=== PATIENT | female | born 1935 | race Two or more races ===

== ENCOUNTER 2021-06-07 12:18 | Inpatient (IN) | payer OTHER ==
[~2021-06-07] VITALS: Ht 157.5 cm; Wt 54.4 kg
[2021-06-07] MEDS ORDERED: CHILDREN'S ASPI81 MG (12:27)
[2021-06-07] MEDS ORDERED: CLONAZEPAM0.5 MG (12:28)
[2021-06-07] MEDS ORDERED: VASOTEC5 MG (12:28)
[2021-06-07] MEDS ORDERED: ARICEPT5 MG (12:28)
[2021-06-07] MEDS ORDERED: NAMENDA10 MG (12:28)
[2021-06-07] MEDS ORDERED: METFORMIN HCL500 M3 (12:29)
[2021-06-07] MEDS ORDERED: RISPERDAL0.5 MG (12:31)
[2021-06-07] MEDS ORDERED: ATORVASTATIN CA40 MG (12:32)
[2021-06-07] MEDS ORDERED: SERTRALINE20 MG/1 ML (12:32)
[2021-06-07] MEDS ORDERED: LEVOTHYROXINE50 MC1 (12:32)
[2021-06-07] MEDS ORDERED: VITAMIN D310 MCG/1 M (12:32)
== END 2021-06-19 13:34 | DRG 689 ==
LOC: ER 12:18 → MEDI 16:37
PROVIDERS: ADMIT Internal Medicine; ATTEND Internal Medicine
PROC: 30243N1 Transfusion of Nonautologous Red Blood Cells into Central Vein, Percutaneous Approach (ICD-10-PCS; 2021-06-11)
PROC: 02HV33Z Insertion of Infusion Device into Superior Vena Cava, Percutaneous Approach (ICD-10-PCS; principal; 2021-06-13)
DX: N39.0 Urinary tract infection, site not specified (principal); E11.00 Type 2 diabetes mellitus with hyperosmolarity without nonketotic hyperglycemic-hyperosmolar coma (NKHHC); E87.0 Hyperosmolality and hypernatremia; K80.00 Calculus of gallbladder with acute cholecystitis without obstruction; N17.8 Other acute kidney failure; Z16.12 Extended spectrum beta lactamase (ESBL) resistance; R78.81 Bacteremia; D64.9 Anemia, unspecified; E11.65 Type 2 diabetes mellitus with hyperglycemia; Z79.4 Long term (current) use of insulin; I10 Essential (primary) hypertension; E03.8 Other specified hypothyroidism; E86.0 Dehydration; G30.9 Alzheimer's disease, unspecified; F02.80 Dementia in other diseases classified elsewhere, unspecified severity, without behavioral disturbance, psychotic disturbance, mood disturbance, and anxiety; R41.82 Altered mental status, unspecified; B96.29 Other Escherichia coli [E. coli] as the cause of diseases classified elsewhere; I80.8 Phlebitis and thrombophlebitis of other sites; Z20.822 Contact with and (suspected) exposure to COVID-19; D72.828 Other elevated white blood cell count; Z74.01 Bed confinement status

== ENCOUNTER 2021-09-01 06:17 | Day surgery (SDC) | payer OTHER ==
[~2021-09-01 06:17] MED LIST: ARICEPT5 MG; ATORVASTATIN CA40 MG; CHILDREN'S ASPI81 MG; CLONAZEPAM0.5 MG; GLIPIZIDE-METF1 EAC2 PO; LEVOTHYROXINE50 MC1 PO; METFORMIN HCL500 M3; NAMENDA10 MG; RESTORIL15 MG PO; RISPERDAL0.5 MG; SERTRALINE20 MG/1 ML; VASOTEC5 MG PO; VITAMIN D310 MCG/1 M
[2021-09-01] MEDS ORDERED: MEMANTINE HCL10 MG (07:47)
[2021-09-01] MEDS ORDERED: RISPERIDONE0.5 MG (07:48)
[2021-09-01] MEDS ORDERED: HYDRALAZINE HCL25 MG (07:48)
[2021-09-01] MEDS ORDERED: HUMULIN 70100 UNIT/2 (07:48)
[2021-09-01] MEDS ORDERED: PANTOPRAZOLE SO40 MG (07:48)
== END 2021-09-01 12:10 | disposition home or self-care (01) ==
LOC: SURH 06:17 → CIR.AMB 06:17 → O/R 06:17 → SURH 07:00 → CIR.AMB 07:30 → EDSTATUS 07:30 → SURH 07:30 → CIR.AMB 12:10 → O/R 12:10
PROVIDERS: ATTEND Surgery
DX: K80.10 Calculus of gallbladder with chronic cholecystitis without obstruction (principal); K82.8 Other specified diseases of gallbladder; Z91.013 Allergy to seafood; K42.9 Umbilical hernia without obstruction or gangrene; Z20.822 Contact with and (suspected) exposure to COVID-19; Z88.0 Allergy status to penicillin; E78.00 Pure hypercholesterolemia, unspecified; I10 Essential (primary) hypertension; E03.9 Hypothyroidism, unspecified; F03.90 Unspecified dementia, unspecified severity, without behavioral disturbance, psychotic disturbance, mood disturbance, and anxiety

== ENCOUNTER 2022-09-08 11:24 | Inpatient (IN) | payer OTHER ==
[~2022-09-08] VITALS: Ht 157.5 cm; Wt 72.6 kg
[~2022-09-08 11:24] MED LIST changes: +HUMULIN 70100 UNIT/2; +HYDRALAZINE HCL25 MG; +MEMANTINE HCL10 MG; +PANTOPRAZOLE SO40 MG; +RISPERIDONE0.5 MG
--- NOTE | 2022-09-08 11:43 | NUR ---
SE RECIBE PTE SOMNOLIENTA, LA CUAL RESPONDE AL LLAMADO, ALERTA Y ORIENTADA EN PERSONA, LA CUAL LLEGA EN AMBULANCIA PARA MEDICOS Y FAMILIAR (HI[place]) REFIEREN PTE SE ENCUENTRA HIPOACTIVA Y SIN QUERER COMER DESDE KAL. PTE CANALIZADA CON ANGIO # 20 EN BRAZO LT, PATENTE CON 0.9% NSS/250ML. DXT-60MG/DL, SE PRESENTA A DR CHAMBERS Y SE UBICA EN AREA DE OBSERVACION. SE ADMINISTRA DW5%/250ML ALDO ORDEN MEDICA.
--- NOTE | 2022-09-08 12:37 | NUR ---
PTE EVALUADA POR EL DR REYES DEAN [place]. MS Chuck HARDING ROIENTA SOBRE EL [place] ORDENADO, LO CUAL REFIERE ENTENDER, REALIZA PRUEBAS DE LABORATORIO Y ADMINISTRA MEDICAMENTOS ALDO ORDEN MEDICA Y SIGUIENDO MEDIDAS ASEPTICAS.
--- NOTE | 2022-09-08 15:38 | NUR ---
SE RECIBE PACIENTE DEL TURNO ANTERIOR LA MISMA ESTA DESORIENTADA X3. HX. DE DEMENCIA [place]COM[place] DE [place] H[place]O. LA MISMA ESTA CANALIZADA Y BAJANDO CON UN 0.9NSS @ 125 ML/HR. SE MIDEN S/V Y DXT Y DE DOCUMENTA EN SISTEMA. SE REPITE BMP HEMOLIZADO
[2022-09-12] MEDS ORDERED: LEVOFLOXACIN750 MG PO (16:02)
== END 2022-09-12 21:00 | disposition home or self-care (01) | DRG 690 ==
LOC: ER 11:24 → MEDJ 17:35 → MEDI 17:35 → SEC-K 19:45 → MEDJ 19:46
PROVIDERS: ADMIT Internal Medicine; ATTEND Internal Medicine
DX: N39.0 Urinary tract infection, site not specified (principal); N17.9 Acute kidney failure, unspecified; E87.0 Hyperosmolality and hypernatremia; G30.9 Alzheimer's disease, unspecified; F02.80 Dementia in other diseases classified elsewhere, unspecified severity, without behavioral disturbance, psychotic disturbance, mood disturbance, and anxiety; Z74.01 Bed confinement status; E11.9 Type 2 diabetes mellitus without complications; Z79.4 Long term (current) use of insulin

== ENCOUNTER → 2023-01-02 | Emergency (ER) | payer OTHER ==
[~2023-01-02] VITALS: Ht 160 cm; Wt 65.8 kg
[~2023-01-02] MED LIST changes: +ALPRAZOLAM OD0.25 MG; +LEVOFLOXACIN750 MG PO
[2023-01-02 13:35] LABS: HEMATOCRIT 37.3 % (36.0-45.00); HEMOGLOBIN 12.2 g/dL (12.0-15.00); MEAN CELL VOLUME 94.4 fL (80.00-100.00); MEAN CORPUSCULAR HEMOGLOBIN 30.8 pg (27.00-32.0); MEAN CORPUSCULAR HGB CONC 32.7 g/dl (32.0-36.0); PLATELET COUNT 222 K/uL (150-450); RED BLOOD COUNT 3.95 M/uL (4.00-6.00); RED CELL DISTRIBUTION WIDTH 14.3 % (11.5-14.5)
[2023-01-02 13:52] LABS: URINE APPEARANCE Turbid; URINE BILIRRUBIN Negative (NEGATIVE); URINE BLOOD Negative; URINE COLOR Yellow; URINE LEUKOCYTE Small; URINE NITRATE Negative; URINE PROTEIN Negative (NEGATIVE)
[2023-01-02 13:56] LABS: URINE EPITHELIAL CELLS 7.1 uL (0.0-38.8); URINE RBC 88.8 uL (0.0-20.8); URINE WBC 18.5 uL (0.0-23.2)
[2023-01-02 14:05] LABS: ALBUMIN 2.9 gm/dL (3.4-5.0); BILIRUBIN TOTAL 0.27 mg/dL (0.3-1.2); CREATININE SERUM 0.98 mg/dL (0.55-1.02); GFR 53.68; GLOBULINA 4.8 G/DL (2.4-3.5); POTASSIUM 3.89 mEq/L (3.5-5.1); TOTAL PROTEIN 7.7 gm/dL (6.4-8.2)
[2023-01-02 14:52] LABS: URINE BACTERIA > 9821.2 uL (0.0-1933); URINE GLUCOSE 500 MG/DL (NEGATIVE)
[2023-01-02 14:53] LABS: URINE BACTERIA MANY
== END | disposition home or self-care (01) ==
LOC: ER 12:00
PROVIDERS: Emergency Medicine
DX: N39.0 Urinary tract infection, site not specified (principal); F03.90 Unspecified dementia, unspecified severity, without behavioral disturbance, psychotic disturbance, mood disturbance, and anxiety; R53.81 Other malaise; E11.9 Type 2 diabetes mellitus without complications; R63.0 Anorexia; I10 Essential (primary) hypertension; Z91.013 Allergy to seafood; Z88.0 Allergy status to penicillin